=== PATIENT | female | born 1995 | race Caucasian/White ===

== ENCOUNTER 2024-01-27 11:53 | Emergency (ER) | payer OTHER ==
[2024-01-27] VITALS (9 sets, daily range): BP systolic 120–131; BP diastolic 62–75
[~2024-01-27] VITALS: Ht 177.8 cm; Wt 99.0 kg
[2024-01-27] MEDS ORDERED: ALBUTEROL SULFATE 2.5 MG VIAL IN ONE (12:45)
[2024-01-27] MEDS ORDERED: [UNRECOGNIZED DRUG - OTHER] PO (14:02)
[2024-01-27] MEDS ORDERED: VENTOLIN HFA108 MCG IN (14:02)
== END 2024-01-27 14:12 | disposition home or self-care (01) ==
LOC: ED 11:53
DX: J20.4 Acute bronchitis due to parainfluenza virus (principal); Z20.822 Contact with and (suspected) exposure to COVID-19; J00 Acute nasopharyngitis [common cold]